=== PATIENT | female | born 1965 | race Caucasian/White ===

== ENCOUNTER 2022-11-01 13:26 | Observation (INO) | payer BC ==
[2022-11-01] MEDS ORDERED: ASPIRIN 81 MG PO STA (13:37)
[2022-11-01] MEDS ORDERED: NITROGLYCERIN OINT 1 INCH/GM PACKET TOPICAL STA (13:37)
--- NOTE | 2022-11-01 13:40 | ED ---
General Adult HPI - General Chief complaint: Chest Pain Stated complaint: chest pain Time Seen by Provider: 11/01/22 13:29 Source: patient, EMS, RN notes reviewed, old records reviewed (Chart review from [place] [facility]) Mode of arrival: EMS Limitations: no limitations - History of Present Illness Initial comments: Patient is a pleasant 57-year-old female presenting as a transfer from the next. Patient has been having some chest discomfort over the past 2-3 days. Discomfort is currently 5 or 6/10. Patient does feel some pressure there. No associated dyspnea. Patient did have nausea and did vomit one time. Patient has had some associated sweating with her discomfort. Patient had indeterminate troponin with reported no EKG changes and was advised to come to the hospital. No history of similar symptoms previously. Patient does have lupus history - Related Data Allergies Allergy/AdvReac Type Severity Reaction Status Date / Time No Known Allergies Allergy Verified 11/01/22 13:33 Review of Systems ROS Statement: Those systems with pertinent positive or pertinent negative responses have been documented in the HPI. ROS Other: All systems not noted in ROS Statement are negative. Constitutional: Denies: fever Eyes: Denies: eye pain ENT: Denies: ear pain Respiratory: Denies: dyspnea Cardiovascular: Reports: as per HPI, chest pain Gastrointestinal: Reports: as per HPI. Denies: abdominal pain Past Medical History Additional Past Medical History / Comment(s): Lupus History of Any Multi-Drug Resistant Organisms: None Reported Past Surgical History: No Surgical Hx Reported Additional Past Surgical History / Comment(s): kidney biopsy Past Psychological History: No Psychological Hx Reported Smoking Status: Never smoker Past Alcohol Use History: None Reported Past Drug Use History: None Reported General Exam Limitations: no limitations General appearance: alert, in no apparent distress Head exam: Present: normocephalic Eye exam: Present: normal appearance Neck exam: Present: normal inspection Respiratory exam: Present: normal lung sounds bilaterally. Absent: chest wall tenderness Cardiovascular Exam: Present: regular rate, normal rhythm Expanded Peripheral pulses: 2+: Radial (R), Radial (L), Dorsalis Pedis (R), Dorsalis Pedis (L) GI/Abdominal exam: Present: soft. Absent: tenderness Extremities exam: Present: normal inspection. Absent: pedal edema, calf tenderness Neurological exam: Present: alert Psychiatric exam: Present: normal affect, normal mood Skin exam: Present: normal color Course Vital Signs 11/01/22 13:33 Temperature 98.9 F Pulse Rate 82 Respiratory 16 Rate Blood Pressure 112/80 O2 Sat by Pulse 100 Oximetry EKG Findings - EKG Results: EKG: interpreted by MATTHIAS (Septal Q waves. Nonspecific ST-T.), sinus rhythm, normal axis Medical Decision Making - Medical Decision Making Was pt. sent in by a medical professional or institution (, [facility]IS, APPARATUS ENGINEERING TECHNOLOGIST, urgent care, hospital, or retirement...) When possible be specific @ -Patient was sent from the next urgent care Did you speak to anyone other than the patient for history (EMS, parent, family, police, friend...)? What history was obtained from this source @ -No Did you review nursing and triage notes (agree or disagree)? Why? @ -I reviewed and agree with nursing and triage notes Were old charts reviewed (outside hosp., previous admission, EMS record, old EKG, old radiological studies, urgent care reports/EKG's, retirement records)? Report findings @ -I did review notes from [place] [facility] including blood work and d-dimer and troponin Differential Diagnosis (chest pain, altered mental status, abdominal pain women, abdominal pain men, vaginal bleeding, weakness, fever, dyspnea, syncope, headache, dizziness, GI bleed, back pain, seizure, CVA, palpatations, mental health, musculoskeletal)? @ -Differential Chest Pain: Stable Angina, Unstable Angina, STEMI, NSTEMI Aortic Dissection, Pneumothorax, Musculoskeletal, Esophageal Spasm GERD, Cholecystitis, Pancreatitis, Zoster, this is not meant to be an all-inclusive list. EKG interpreted by me (3pts min.). @ -As above X-rays interpreted by me (1pt min.). @ -Chest x-ray shows atelectasis versus infiltrate. CT interpreted by me (1pt min.). @ -None done U/S interpreted by me (1pt. min.). @ -None done What testing was considered but not performed or refused? (CT, X-rays, U/S, labs)? Why? @ -None What meds were considered but not given or refused? Why? @ -None Did you discuss the management of the patient with other professionals (professionals i.e. , HARIS, APPARATUS ENGINEERING TECHNOLOGIST, lab, RT, psych nurse, social services assistant, radar mechanic, teacher, chief commercial officer, family preservation caseworker)? Give summary @ -Case was discussed with Dr. Delaney, who will admit for Dr. Tomas Was smoking cessation discussed for >3mins.? @ -No Was critical care preformed (if so, how long)? @ -31 minutes critical care time Were there social determinants of health that impacted care today? How? (Homelessness, low income, unemployed, alcoholism, drug addiction, transportation, low edu. Level, literacy, decrease access to med. care, snf, rehab)? @ -No Was there de-escalation of care discussed even if they declined (Discuss DNR or withdrawal of care, Hospice)? DNR status @ -No What co-morbidities impacted this encounter? (DM, HTN, Smoking, COPD, CAD, Cancer, CVA, ARF, Chemo, Hep., AIDS, mental health diagnosis, sleep apnea, morbid obesity)? @ -None Was patient admitted / discharged? Hospital course, mention meds given and route, prescriptions, significant lab abnormalities, going to OR and other pertinent info. @ -Patient was evaluated and updated on results and plan. Patient will be admitted. Admission orders written. Heparin was previously started and this will be continued. Patient will have cardiology consult. Undiagnosed new problem with uncertain prognosis? @ -No Drug Therapy requiring intensive monitoring for toxicity (Heparin, Nitro, Insuli n, Cardizem)? @ -Patient is on a heparin drip that will be continued. Were any procedures done? @ -No Diagnosis/symptom? @ -unStable angina Acute, or Chronic, or Acute on Chronic? @ -Acute Uncomplicated (without systemic symptoms) or Complicated (systemic symptoms)? @ -default Side effects of treatment? @ -No Exacerbation, Progression, or Severe Exacerbation? @ -No Poses a threat to life or bodily function? How? (Chest pain, [place], NM, pneumonia, PE, COPD, DKA, ARF, appy, cholecystitis, CVA, Diverticulitis, Homicidal, Suicidal, threat to staff... and all critical care pts) @ -Potential threat to cardiac function Case was also discussed with cardiology, Dr. Rubio who will evaluate patient at 1551. Repeat, interpreted by myself, EKG at 1549 shows sinus rhythm rate 71. FL 142. QRS 75. QT 410. QTc 432. Normal axis. Q wave in V1 and V2. Biphasic T waves laterally. - Lab Data Result diagrams: 11/01/22 14:31 11/01/22 14:31 Critical Care Time Critical Care Time: Yes Total Critical Care Time: 31 Disposition Clinical Impression: Unstable angina pectoris Disposition: ADMITTED IP TO THIS HOSP Is patient prescribed a controlled substance at d/c from ED?: No Time of Disposition: 14:31
[2022-11-01] MEDS ORDERED: HEPARIN SODIUM 1,000 UN/ML (10ML VL) IV ONE ×2 (13:56→17:15)
[2022-11-01] MEDS ORDERED: NITROGLYCERIN SL TABS 0.4 MG TAB SUBLINGUAL PRN ×2 (13:56→16:08)
[2022-11-01] MEDS: HEPARIN SOD,PORK IN 0.45% NACL 25,000 UNIT in 0.45% NACL 1 250ML.BAG IV SCH (14:37)
[2022-11-01 14:40] LABS: Basophils % (A) 0 %; Eosinophils # (A) 0.1 k/uL (0-0.7); Eosinophils % (A) 1 %; HCT 30.6 % (34.0-46.0); HGB 10.3 gm/dL (11.4-16.0); Lymphocytes # (A) 0.8 k/uL (1.0-4.8); Lymphocytes % (A) 10 %; MCH 30.6 pg (25.0-35.0); MCHC 33.7 g/dL (31.0-37.0); MCV 90.8 fL (80.0-100.0); Mean Platelet Volume 7.6; Monocytes # (A) 0.3 k/uL (0-1.0); Monocytes % (A) 4 %; Neutrophils # (A) 6.3 k/uL (1.3-7.7); Neutrophils % (A) 84 %; Platelet Count 235 k/uL (150-450); RBC 3.37 m/uL (3.80-5.40); RDW 14.6 % (11.5-15.5); WBC 7.5 k/uL (3.8-10.6)
[2022-11-01] MEDS ORDERED: ONDANSETRON 4 MG/2 ML VIAL IVP STA (14:46)
[2022-11-01 14:52] LABS: Partial Thromboplastin Time 56.5 sec (22.0-30.0); Prothrombin Time 10.3 sec (9.0-12.0)
[2022-11-01 15:09] LABS: ALT 14 U/L (4-34); AST 27 U/L (14-36); African American GFR (CKD) >90 (>60 ml/min/1.73 sqM); Albumin 3.8 g/dL (3.5-5.0); Alkaline Phosphatase 60 U/L (38-126); Anion Gap 9 mmol/L; Blood Urea Nitrogen 14 mg/dL (7-17); Calcium 9.2 mg/dL (8.4-10.2); Carbon Dioxide 20 mmol/L (22-30); Chloride 107 mmol/L (98-107); Glucose 99 mg/dL (74-99); Magnesium 1.9 mg/dL (1.6-2.3); Non-African American GFR(CKD) 80 (>60 ml/min/1.73 sqM); Potassium 4.1 mmol/L (3.5-5.1); Sodium 136 mmol/L (137-145); Total Bilirubin 0.5 mg/dL (0.2-1.3); Total Protein 6.5 g/dL (6.3-8.2)
--- NOTE | 2022-11-01 15:46 | XR ---
EXAMINATION TYPE: XR chest 2V DATE OF EXAM: 11/01/2022 COMPARISON: None HISTORY: 57-year-old female with chest pain TECHNIQUE: AP and lateral views FINDINGS: Heart normal size. Aorta and pulmonary vasculature within normal limits. Some patchy posterior basila r opacity. Mild interstitial prominence is also present. No pleural effusion. IMPRESSION: 1. Interstitial prominence could reflect bronchitis or asthma. 2. In addition, there is patchy posterior basilar atelectasis versus early infiltrate.
[2022-11-01] MEDS ORDERED: ATORVASTATIN 80 MG TAB PO STA (16:08)
[2022-11-01] MEDS ORDERED: ALPRAZolam 0.25 MG TAB PO PRN (16:08)
[2022-11-01] MEDS ORDERED: ASPIRIN 325 MG TAB PO STA (16:08)
[2022-11-01] MEDS ORDERED: ALPRAZolam 0.5 MG TAB PO PRN (16:08)
--- NOTE | 2022-11-01 16:24 | P.CRDCN ---
History of Present Illness History of present illness: HISTORY OF PRESENTING ILLNESS This is a pleasant 57-year-old with past medical history significant for lupus with some renal involvement, borderline HTN. 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 She has been having off-and-on chest pain over the last 2 days. She admits this started when she was startled and then started to develop some substernal chest pain which was somewhat atypical occasionally worse with inspiration. She thought this may been related to something mechanical that she did. 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 Therefore she was urged to sit down and EMS was called. She denies any prior similar episodes. She does not smoke, no alcohol, no illicit drugs. Family history father with OR in his 70s. She has been diagnosed with lupus as well as with renal involvement apparently by biopsy and therefore has been on methotrexate. DIAGNOSTICS EKG reveals normal sinus rhythm, minimal ST depressions in inferior and lateral leads. Poor R-wave progression. Minimal 0.[address] elevation in V6. REVIEW OF SYSTEMS At the time of my exam: CONSTITUTIONAL: Denies fever or chills. CARDIOVASCULAR: +chest pain, +shortness of breath, no orthopnea, PND or palpitations. RESPIRATORY: Denies cough. GASTROINTESTINAL: Denies abdominal pain, diarrhea, constipation, nausea or vomiting. MUSCULOSKELETAL: Denies myalgias. NEUROLOGIC: Denies numbness, tingling or weakness. ENDOCRINE: Denies fatigue, weight change, polydipsia or polyurina. GENITOURINARY: Denies burning, hematuria or urgency with micturation. HEMATOLOGIC: Denies history of anemia or bleeding. PHYSICAL EXAMINATION Vital signs reviewed. CONSTITUTIONAL: No apparent distress. HEENT: Head is normocephalic. Pupils are equal, round. Sclerae anicteric. Mucous membranes of the mouth are moist. No JVD. No carotid bruit. CHEST EXAMINATION: Lungs are clear to auscultation. No chest wall tenderness is noted on palpation or with deep breathing. HEART EXAMINATION: Regular rate and rhythm. S1, S2 heard. No murmurs, gallops or rub. ABDOMEN: Soft, nontender. Positive bowel sounds. EXTREMITIES: 2+ peripheral pulses, no lower extremity edema and no calf tenderness. NEUROLOGIC EXAMINATION: Patient is awake, alert and oriented x3. ASSESSMENT 1. Non-STEMI 2. Chest pain 3. History of lupus 4. Hypertension, somewhat borderline PLAN Majority of symptoms appear related to non-STEMI, concern of type I etiology. Also possibility of Takotsubo's with inciting event of patient being startled. Rule out PE and check D dimer. Continue aspirin, heparin drip. Check 2D echo. Patient still having ongoing 5/10 chest pain, somewhat improved from prior. Refusing to take nitro given gets headache from this. Therefore recommend heart catheterization today. Past Medical History Additional Past Medical History / Comment(s): Lupus History of Any Multi-Drug Resistant Organisms: None Reported Past Surgical History: No Surgical Hx Reported Additional Past Surgical History / Comment(s): kidney biopsy Past Psychological History: No Psychological Hx Reported Smoking Status: Never smoker Past Alcohol Use History: None Reported Past Drug Use History: None Reported Medications and Allergies Allergies Allergy/AdvReac Type Severity Reaction Status Date / Time No Known Allergies Allergy Verified 11/01/22 13:33 Physical Exam Vitals: Vital Signs Temp Pulse Resp BP Pulse Ox 11/01/22 13:33 98.9 F 82 16 112/80 100 Intake and Output 11/01/22 11/01/22 11/01/22 06:59 14:59 22:59 Other: Weight 79.379 kg Results 11/01/22 14:31 11/01/22 14:31 Cardiac Enzymes 11/01/22 11/01/22 11/01/22 Range/Units 14:31 14:31 14:51 AST 27 (14-36) U/L Troponin I 0.507 H* 0.574 H* (0.000-0.034) ng/mL Coagulation 11/01/22 Range/Units 14:31 PT 10.3 (9.0-12.0) sec APTT 56.5 H (22.0-30.0) sec CBC 11/01/22 Range/Units 14:31 WBC 7.5 (3.8-10.6) k/uL RBC 3.37 L (3.80-5.40) m/uL Hgb 10.3 L (11.4-16.0) gm/dL Hct 30.6 L (34.0-46.0) % Plt Count 235 (150-450) k/uL Comprehensive Metabolic Panel 11/01/22 Range/Units 14:31 Sodium 136 L (137-145) mmol/L Potassium 4.1 (3.5-5.1) mmol/L Chloride 107 (98-107) mmol/L Carbon Dioxide 20 L (22-30) mmol/L BUN 14 (7-17) mg/dL Creatinine 0.83 (0.52-1.04) mg/dL Glucose 99 (74-99) mg/dL Calcium 9.2 (8.4-10.2) mg/dL AST 27 (14-36) U/L ALT 14 (4-34) U/L Alkaline Phosphatase 60 (38-126) U/L Total Protein 6.5 (6.3-8.2) g/dL Albumin 3.8 (3.5-5.0) g/dL Current Medications Generic Name Dose Route Start Last Admin Trade Name Freq PRN Reason Stop Dose Admin Alprazolam 0.25 mg 11/01/22 16:08 Alprazolam 0.25 Mg Tab PO Q6HR PRN Mild Anxiety Alprazolam 0.5 mg 11/01/22 16:08 Alprazolam 0.5 Mg Tab PO Q6HR PRN Moderate Anxiety Aspirin 325 mg 11/02/22 09:00 Aspirin 325 Mg Tab PO DAILY [facility] Heparin Sodium/Sodium Chloride 250 mls @ 9.525 mls/hr 11/01/22 14:00 11/01/22 14:37 25,000 unit/ Sodium Chloride IV 12 units/kg/hr .Q24H LIBBY 9.525 mls/hr Administration Protocol 12 UNITS/KG/HR Heparin Sodium (Porcine) 10, 1,001 mls @ 999 mls/hr 11/02/22 07:00 000 unit/ Sodium Chloride IRRIGATION 11/02/22 23:00 ONCE PRN INTRA-OP Heparin Sodium (Porcine) 2,500 250.5 mls @ 250 mls/hr 11/02/22 07:00 unit/ Sodium Chloride IRRIGATION 11/02/22 23:00 ONCE PRN INTRA-OP Nitroglycerin 1 inch 11/01/22 18:00 Nitroglycerin Oint 1 Inch/Gm Packet TOPICAL Q6HR LIBBY Nitroglycerin 0.4 mg 11/01/22 16:08 Nitroglycerin Sl Tabs 0.4 Mg Tab SUBLINGUAL Q5M PRN Chest Pain Intake and Output 11/01/22 11/01/22 11/01/22 06:59 14:59 22:59 Other: Weight 79.379 kg Patient Weight 11/02/22 06:59 Weight 79.379 kg 11/01/22 14:31 11/01/22 14:31
[2022-11-01] MEDS ORDERED: SODIUM CHLORIDE 0.9% 250 ML IV ONE (17:07)
[2022-11-01] MEDS ORDERED: SODIUM CHLORIDE 0.9% 500 ML 500 ML IV ONE (17:07)
[2022-11-01] MEDS ORDERED: HYDROCORTISONE SUCCINATE 100 MG/2 ML VIAL IV STA (17:07)
[2022-11-01] MEDS ORDERED: fentaNYL (PF) 50 MCG/ML 2 ML AMP ONE (17:08)
[2022-11-01] MEDS ORDERED: MIDAZOLAM 2 MG/2 ML VIAL IVP ONE (17:10)
[2022-11-01] MEDS ORDERED: fentaNYL (PF) 50 MCG/ML 2 ML AMP IVP ONE (17:10)
[2022-11-01] MEDS ORDERED: LIDOCAINE 1% INJ 10MG/ML (5 ML VIAL-PF) SQ ONE (17:11)
[2022-11-01] MEDS ORDERED: VERAPAMIL SYRINGE (5 MG/10 ML) INTRAARTER ONE (17:13)
[2022-11-01] MEDS ORDERED: IOPAMIDOL-370 200ML BTL INJ ONE (17:27)
--- NOTE | 2022-11-01 17:33 | P.CARDCATH ---
Description of Procedure: PROCEDURES PERFORMED: Left heart catheterization, bilateral coronary angiography, left ventriculogram, ultrasound guided arterial access INDICATION: Non-STEMI CONSENT:I have discussed the risks, benefits and alternative therapies for the above-mentioned procedure and for both sedation/analgesia as well as necessary blood product administration, if indicated, as they pertain to this patient. The patient has indicated understanding and acceptance of the risks and procedures discussed. PROCEDURE: After the risks, benefits and alternatives of the above mentioned procedure explained in detail with the patient, informed consent was obtained. Patient was taken to the catheterization lab and prepped and draped in usual fashion. Ultrasound guidance was used to assess for arterial access. 1% lidocaine was used to anesthetize the right radial artery. A 6-Guatemalan sheath was placed in the right radial artery using modified Seldinger technique and ultrasound guidance. Left coronary angiography was performed with a 5-[place]atem[place] JL 3.5 catheter and right coronary angiography was performed with a 5-[place] JR5 catheter in various views. A 5-[place]atem[place] FR5 catheter was inserted into the left ventricle and pressure measurements were obtained. A left ventriculogram was performed with a 6-[place] angled pigtail catheter in the ADAN projection with power injection. The right radial sheath was removed and a TR band was placed with hemostasis achieved. The patient tolerated the procedure well. Patient was transported back to the post catheterization holding area in stable condition. Conscious Sedation: Patient was monitored under the direct supervision of myself for conscious sedation using Versed and fentanyl for a total duration of 18 minutes HEMODYNAMICS: Aorta: 108/76 LV: 109/10, LVEDP 22 SELECTIVE CORONARY ARTERIOGRAPHY: LEFT MAIN: The left main is a large caliber vessel which bifurcates into the LAD and circumflex. There is no significant stenosis. LEFT ANTERIOR DESCENDING CORONARY ARTERY: LAD is a large caliber vessel which wraps around to the apex. There is no significant stenosis. LEFT CIRCUMFLEX CORONARY ARTERY: Left circumflex is a moderate caliber vessel without significant stenosis. RIGHT CORONARY ARTERY: The right coronary artery is a large caliber vessel which gives off a PDA and PLV branch and is the dominant vessel. There is no significant stenosis. LEFT VENTRICULOGRAM: Left ventricular ejection fraction 30-35% with mainly apical hypokinesis with sparing of the base however more mid cavitary akinesis then true apical hypokinesis consistent with mid cavitary variant Takotsubo's cardiomyopathy FINAL IMPRESSION: 1. Normal coronary arteries as described above. 2. Mildly elevated left sided filling pressures 3. Left ventricular ejection fraction 30-35% with mid cavitary variant Takotsubo's cardiomyopathy PLAN: 1. Aggressive risk factor modification per most recent ACC/AHA guidelines. 2. Follow-up in the office in 1-2 weeks.
[2022-11-01] MEDS ORDERED: NITROGLYCERIN OINT 1 INCH/GM PACKET TOPICAL SCH (18:00)
[2022-11-01] MEDS ORDERED: CALCIUM CARBONATE 500 MG CHEWABLE PO PRN (18:10)
[2022-11-01] MEDS ORDERED: ONDANSETRON 4 MG/2 ML VIAL IVP PRN (18:10)
[2022-11-01] MEDS ORDERED: NALOXONE 0.4 MG/ML 1 ML VIAL IVP PRN (18:10)
--- NOTE | 2022-11-01 18:19 | P.HPIM ---
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 She was found have an elevated troponin and was subsequently transferred to our ER. Repeat EKG showed normal sinus rhythm at a rate of 71, normal axis, normal intervals, and nonspecific ST-T wave changes Elevated troponin was confirmed at 0.507. Chest x-ray showed mild interstitial prominence. The emergency physician urgently talked with cardiology came down to see the patient. Arrangements are made for admission. She went emergently to left heart cath. She had normal coronary arteries but did show a left ventricular ejection fraction of 30-35% consistent with Takotsubo's cardiomyopathy. Patient seen and examined at bedside. She reports that she has been having chest pain for the last 2 days. It started after getting startled. She has had some intermittent shortness of breath. Today the chest pain got worse and she started feeling nauseated and became pale. She reports that she follows at [facility] for her lupus. She was recently diagnosed with renal involvement. She is on., On biologic, and chronic prednisone for quite some time. About a month ago she decreased her prednisone from 10 mg daily she is 9 mg daily. She missed her dose this morning as well as her AM CellCept dose. She follows with Dr. Chanel of nephrology for her lupus nephritis. She denies any brain, ocular, or lung involvement of her lupus. Vital signs reviewed General: nontoxic, no distress, appears at stated age Derm: warm, dry Eyes: EOMI, no lid lag, anicteric sclera, pupils equal round reactive to light ENT: Nose and ears atraumatic, no thrush, no pharyngeal erythema Cardiovascular: S1S2 reg, no murmur, positive posterior tibial pulse bilateral, 1+ edema Lungs: clear to auscultation bilateral, no rhonchi, no rales, no wheeze, no accessory muscle use Abdominal: soft, nontender to palpation, no guarding, no appreciable organomegaly, normal bowel sounds Ext: no gross muscle atrophy, moving all 4 extremities independently, no contractures Neuro: CN II-XII grossly intact, no focal neuro deficits Psych: Alert, oriented, appropriate affect Assessment/Plan: Takotsubo's cardiomyopathy - heart cath with normal coronaries - Start Metoprolol 25 mg daily, resume home cozaar - NS @ 75 cc/hr, moniutor closely for fluid overload but recent issue with renal fuction and lupus - reapeat CR in AM - check lipid profile - echo - tele Lupus with chronic steroid use and renal involvement - resume home cellcept 1500 mg twice daily, prednisone 9 mg daily, missed her AM steroids and has been on for a >3 months will give solu-cortef 25 mg IVP X 1 now. Imaging: As per HPI Data Review: As per HPI The patient is admitted with an anticipated greater than 2 midnight stay for evaluation of chest pain DVT prophylaxis: SCDs Discussed with: patient, ed physician, nursing Anticipated discharge date: Pending Clinical Course Anticipated discharge place: Pending Clinical Course This dictation was prepared using Ve[employer] voice recognition software. Though every attempt is made to correct errors during dictation some may still exist. Past Medical History Additional Past Medical History / Comment(s): Lupus History of Any Multi-Drug Resistant Organisms: None Reported Additional Past Surgical History / Comment(s): kidney biopsy Past Psychological History: No Psychological Hx Reported Smoking Status: Never smoker Past Alcohol Use History: None Reported Past Drug Use History: None Reported Medications and Allergies Home Medications Medication Instructions Recorded Confirmed Type Belimumab [Benlysta] 200 mg SQ WE@179911/01/22 11/01/22 History Calcium Citrate/Vitamin D3 1 tab PO BID@0900,179911/01/22 11/01/22 History [Citracal + D Maximum Caplet] Hydroxychloroquine Sulfate 200 mg PO BID@0900,1800 11/01/22 11/01/22 History [Plaquenil] Losartan [Cozaar] 50 mg PO DAILY@179911/01/22 11/01/22 History mycophenolate mofetiL [Cellcept] 1,500 mg PO BID@0900,1800 11/01/22 11/01/22 History predniSONE 4 mg PO DAILY 11/01/22 11/01/22 History predniSONE 5 mg PO DAILY 11/01/22 11/01/22 History Allergies Allergy/AdvReac Type Severity Reaction Status Date / Time No Known Allergies Allergy Verified 11/01/22 16:20 Physical Exam Osteopathic Statement: *. No significant issues noted on an osteopathic structural exam other than those noted in the History and Physical/Consult. Vitals: Vital Signs Temp Pulse Resp BP Pulse Ox 11/01/22 16:37 74 18 109/79 99 11/01/22 15:45 78 16 120/88 100 11/01/22 13:33 98.9 F 82 16 112/80 100 Intake and Output 11/01/22 11/01/22 11/01/22 06:59 14:59 22:59 Intake Total 440 Balance 440 Intake: IV 200 Oral 240 Other: # Voids 1 Weight 79.379 kg Results CBC & Chem 7: 11/01/22 14:31 11/01/22 14:31 Labs: Abnormal Lab Results - Last 24 Hours (Table) 11/01/22 11/01/22 11/01/22 Range/Units 14:31 14:31 14:31 RBC 3.37 L (3.80-5.40) m/uL Hgb 10.3 L (11.4-16.0) gm/dL Hct 30.6 L (34.0-46.0) % Lymphocytes # 0.8 L (1.0-4.8) k/uL APTT 56.5 H (22.0-30.0) sec Sodium 136 L (137-145) mmol/L Carbon Dioxide 20 L (22-30) mmol/L Troponin I (0.000-0.034) ng/mL 11/01/22 11/01/22 Range/Units 14:31 14:51 RBC (3.80-5.40) m/uL Hgb (11.4-16.0) gm/dL Hct (34.0-46.0) % Lymphocytes # (1.0-4.8) k/uL APTT (22.0-30.0) sec Sodium (137-145) mmol/L Carbon Dioxide (22-30) mmol/L Troponin I 0.507 H* 0.574 H* (0.000-0.034) ng/mL
[2022-11-01] MEDS: SODIUM CHLORIDE 0.9% 1,000 ML IV SCH (18:23)
[2022-11-01] MEDS: METOPROLOL SUCCINATE (ER) 25 MG TAB.ER.24H PO SCH (18:29)
[2022-11-01] MEDS: ACETAMINOPHEN TAB 325 MG TAB PO PRN ×2 (18:29→23:40)
[2022-11-02 03:11] LABS: Mean Platelet Volume 7.8; Platelet Count 217 k/uL (150-450)
[2022-11-02 03:35] LABS: ALT 13 U/L (4-34); AST 23 U/L (14-36); African American GFR (CKD) >90 (>60 ml/min/1.73 sqM); Albumin 3.3 g/dL (3.5-5.0); Alkaline Phosphatase 48 U/L (38-126); Anion Gap 6 mmol/L; Blood Urea Nitrogen 11 mg/dL (7-17); Calcium 8.8 mg/dL (8.4-10.2); Carbon Dioxide 22 mmol/L (22-30); Chloride 105 mmol/L (98-107); Glucose 99 mg/dL (74-99); Non-African American GFR(CKD) 89 (>60 ml/min/1.73 sqM); Potassium 4.5 mmol/L (3.5-5.1); Sodium 133 mmol/L (137-145); Total Bilirubin 0.6 mg/dL (0.2-1.3); Total Protein 5.9 g/dL (6.3-8.2)
[2022-11-02] MEDS: ACETAMINOPHEN TAB 325 MG TAB PO PRN (06:04)
[2022-11-02] MEDS: SODIUM CHLORIDE 0.9% 1,000 ML IV SCH (06:05)
[2022-11-02] MEDS ORDERED: HEPARIN SODIUM,PORCINE (1 ML) 2,500 UNIT in SODIUM CHLORIDE 0.9% 250 ML IRRIGATION PRN (07:00)
[2022-11-02] MEDS ORDERED: HEPARIN SODIUM,PORCINE 10,000 UNIT in SODIUM CHLORIDE 0.9% 1,000 ML IRRIGATION PRN (07:00)
[2022-11-02] MEDS ORDERED: ASPIRIN 325 MG TAB PO SCH (09:00)
[2022-11-02] MEDS ORDERED: HYDROXYCHLOROQUINE SULFATE 200 MG TAB PO SCH (09:00)
[2022-11-02] MEDS ORDERED: CALCIUM CARB-VIT D 500 MG-5 MCG TAB PO SCH (09:00)
[2022-11-02] MEDS ORDERED: predniSONE 5 MG TAB PO SCH (09:00)
[2022-11-02] MEDS ORDERED: predniSONE 1 MG TAB PO SCH (09:00)
[2022-11-02 09:06] LABS: Chol/HDL Ratio 2.41 Ratio; LDL Cholesterol,Calculated 69.8 mg/dL (0.0-131.0)
[2022-11-02] MEDS: HEPARIN SOD,PORK IN 0.45% NACL 25,000 UNIT in 0.45% NACL 1 250ML.BAG IV SCH (09:16)
[2022-11-02] MEDS: METOPROLOL SUCCINATE (ER) 25 MG TAB.ER.24H PO SCH (09:32)
[2022-11-02 11:19] VITALS: BP 92/62; PULSE 74; RESP 20; TEMP 99.4
--- NOTE | 2022-11-02 12:25 | P.PN ---
Subjective HISTORY OF PRESENT ILLNESS: This is a pleasant 57-year-old with past medical history significant for lupus with some renal involvement, borderline HTN. 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 She has been having off-and-on chest pain over the last 2 days. She admits this started when she was startled and then started to develop some substernal chest pain which was somewhat atypical occasionally worse with inspiration. She thought this may been related to something mechanical that she did. 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 Therefore she was urged to sit down and EMS was called. She denies any prior similar episodes. She does not smoke, no alcohol, no illicit drugs. Family history father with PA in his 70s. She has been diagnosed with lupus as well as with renal involvement apparently by biopsy and therefore has been on methotrexate. DIAGNOSTICS EKG reveals normal sinus rhythm, minimal ST depressions in inferior and lateral leads. Poor R-wave progression. Minimal 0.[address] elevation in V6. 11/02/2022 Patient underwent cardiac catheterization yesterday revealing normal coronary arteries, mildly elevated left-sided filling pressures, and left ventricular ejection fraction 30-35% with mid cavitary variant Takotsubo's cardiomyopathy. Patient examined this morning at the bedside this morning. Patient denies having any chest pain or pressure. She denies any shortness of breath. Vital signs are stable. PHYSICAL EXAM: VITAL SIGNS: Reviewed. GENERAL: Well-developed in no acute distress. NECK: Supple. No JVD or thyromegaly LUNGS: Respirations even and unlabored. Lungs essentially clear to auscultation bilaterally. HEART: Regular rate and rhythm. S1 and S2 heard. EXTREMITIES: Normal range of motion. No clubbing or cyanosis. Peripheral pulses intact. No lower extremity edema ASSESSMENT: 1. Non-STEMI, status post cardiac catheterization revealing normal coronary arteries 2. Chest pain 3. History of lupus 4. Hypertension, somewhat borderline 5. Nonischemic cardiomyopathy, 3035% PLAN: Continue current cardiac medications Patient may be discharged home today from a cardiac standpoint Follow up in the office with Dr. Rubio Nurse practitioner note has been reviewed by physician. Signing provider agrees with the documented findings, assessment, and plan of care. Objective - Vital Signs Vital signs: Vital Signs Temp 99.4 F 11/02/22 11:10 Pulse 74 11/02/22 11:10 Resp 20 11/02/22 11:10 BP 92/62 11/02/22 11:10 Pulse Ox 98 11/02/22 11:10 FiO2 Intake & Output 11/01/22 11/02/22 11/02/22 18:59 06:59 18:59 Intake Total 440 600 240 Balance 440 600 240 Weight 79.379 kg Intake: IV 200 Intake, IV Titration 600 Amount Sodium Chloride 0.9% 1, 600 000 ml @ 75 mls/hr IV . [id number] [facility] Rx#:[id number] Oral 240 240 Other: Voiding Method Toilet Toilet # Voids 1 1 - Labs CBC & Chem 7: 11/02/22 02:33 11/02/22 02:33 Labs: Abnormal Lab Results - Last 24 Hours (Table) 11/01/22 11/01/22 11/01/22 Range/Units 14:31 14:31 14:31 RBC 3.37 L (3.80-5.40) m/uL Hgb 10.3 L (11.4-16.0) gm/dL Hct 30.6 L (34.0-46.0) % Lymphocytes # 0.8 L (1.0-4.8) k/uL APTT 56.5 H (22.0-30.0) sec Sodium 136 L (137-145) mmol/L Carbon Dioxide 20 L (22-30) mmol/L Troponin I (0.000-0.034) ng/mL Total Protein (6.3-8.2) g/dL Albumin (3.5-5.0) g/dL 11/01/22 11/01/22 11/01/22 Range/Units 14:31 14:51 18:53 RBC (3.80-5.40) m/uL Hgb (11.4-16.0) gm/dL Hct (34.0-46.0) % Lymphocytes # (1.0-4.8) k/uL APTT (22.0-30.0) sec Sodium (137-145) mmol/L Carbon Dioxide (22-30) mmol/L Troponin I 0.507 H* 0.574 H* 0.821 H* (0.000-0.034) ng/mL Total Protein (6.3-8.2) g/dL Albumin (3.5-5.0) g/dL 11/01/22 11/02/22 Range/Units 18:53 02:33 RBC (3.80-5.40) m/uL Hgb (11.4-16.0) gm/dL Hct (34.0-46.0) % Lymphocytes # (1.0-4.8) k/uL APTT 52.0 H (22.0-30.0) sec Sodium 133 L (137-145) mmol/L Carbon Dioxide (22-30) mmol/L Troponin I (0.000-0.034) ng/mL Total Protein 5.9 L (6.3-8.2) g/dL Albumin 3.3 L (3.5-5.0) g/dL
--- NOTE | 2022-11-02 13:18 | P.DS ---
Providers Date of admission: 11/01/22 13:56 Expected date of discharge: 11/02/22 Attending physician: Sophia Delaney, Consults: 11/01/22 13:56 Consult Physician Urgent Consulting Provider: Suraj Rubio Consult Reason/Comments: ua Do you want consulting provider notified?: Yes Primary care physician: Uri Marie Thom [facility] Course: Discharge Diagnosis: Takotsubo's cardiomyopathy Lupus with chronic steroid use and renal involvement Hospital Course: Patient is a -year-old female with lupus , located by lupus nephritis on biologic, DMARD, and chronic steroids who initially presented to urgent care with complains of chest pain. She was found have an elevated troponin and was subsequently transferred to our ER. Repeat EKG showed normal sinus rhythm at a rate of 71, normal axis, normal intervals, and nonspecific ST-T wave changes Elevated troponin was confirmed at 0.507. Chest x-ray showed mild interstitial prominence. The emergency physician urgently talked with cardiology came down to see the patient. Arrangements are made for admission. She went emergently to left heart cath. She had normal coronary arteries but did show a left ventricular ejection fraction of 30-35% consistent with Takotsubo's cardiomyopathy. Follow-up: Dr. Rubio in 1 week, Dr. Tomas in 2-3 days, new med: Metoprolol xL 25 mg daily Patient seen and examined at bedside. No additional chest pain, shortness of breath, increased swelling. Vital signs reviewed and stable. General: nontoxic, no distress, appears at stated age Cardiovascular: S1S2 reg, no murmur, positive posterior tibial pulse bilateral, Lungs: CTA bilateral, no rhonchi, no rales , no accessory muscle use Abdominal: soft, nontender to palpation, no guarding, no appreciable organomegaly Ext: no gross muscle atrophy, trace edema b/l lower extremities, no contractures Neuro: CN II-XI grossly intact, no focal neuro deficits Psych: Alert, oriented, appropriate affect A total of 35 minutes of time were spent preparing this complex discharge summary. Patient was discharged on 11/02/22. This dictation was prepared using [employer] voice recognition software. Though every attempt is made to correct errors during dictation some may still exist. Plan - Discharge Summary Discharge Rx Participant: No New Discharge Prescriptions: New Metoprolol Succinate (ER) [Toprol XL] 25 mg PO DAILY #30 tab Continue predniSONE 4 mg PO DAILY predniSONE 5 mg PO DAILY Belimumab [Benlysta] 200 mg SQ WE@1800 Calcium Citrate/Vitamin D3 [Citracal + D Maximum Caplet] 1 tab PO BID@0900,1800 Losartan [Cozaar] 50 mg PO DAILY@1800 mycophenolate mofetiL [Cellcept] 1,500 mg PO BID@0900,1800 Hydroxychloroquine Sulfate [Plaquenil] 200 mg PO BID@0900,1800 Discharge Medication List Belimumab [Benlysta] 200 mg SQ WE@1800 11/01/22 [History] Calcium Citrate/Vitamin D3 [Citracal + D Maximum Caplet] 1 tab PO BID@0900,1800 11/01/22 [History] Hydroxychloroquine Sulfate [Plaquenil] 200 mg PO BID@0900,1800 11/01/22 [History] Losartan [Cozaar] 50 mg PO DAILY@1800 11/01/22 [History] mycophenolate mofetiL [Cellcept] 1,500 mg PO BID@0900,1800 11/01/22 [History] predniSONE 4 mg PO DAILY 11/01/22 [History] predniSONE 5 mg PO DAILY 11/01/22 [History] Metoprolol Succinate (ER) [Toprol XL] 25 mg PO DAILY #30 tab 11/02/22 [Rx] Follow up Appointment(s)/Referral(s): Suraj Rubio DO [STAFF PHYSICIAN] - 1 Week (offfice will call with an appointment. ) Uri Tomas MD [Primary Care Provider] - 1-2 days (office is closed for lunch, please call and schedule your follow up appointment. ) Patient Instructions/Handouts: Angina (DC) Activity/Diet/Wound Care/Special Instructions: Activity: as tolerated Diet: heart healthy Special Instructions: Monitor for signs of fluid retention such as weight gain, edema, and shortness of breath. Discharge Disposition: HOME SELF-CARE
[2022-11-02] MEDS ORDERED: BELIMUMAB SQ SCH (18:00)
[2022-11-02] MEDS ORDERED: AUTO INJCT SQ SCH (18:00)
[2022-11-02] MEDS ORDERED: LOSARTAN 50 MG TAB PO SCH (18:00)
[2022-11-03] MEDS ORDERED: ASPIRIN 81 MG PO SCH (09:00)
--- NOTE | 2022-11-03 11:33 | CA ---
Transthoracic Echo Report Name: Lana Mckinnon Age: 57 Gender: F : 1965 Exam Date: 11/02/2022 10:06 Exam Location: [facility] Ht (in): 68 Wt (lb): 175 Ordering Physician: Suraj Rubio DO ([email or web address]) Attending/Referring Phys: Checkerer Hand Chi López Procedure CPT: Indications: re: NSTEMI Cardiac Hx: Technical Quality: Fair Contrast 1: Total Dose (mL): Contrast 2: Total Dose (mL): MEASUREMENTS (Male / Female) Normal Values 2D ECHO LV Diastolic Diameter PLAX 5.0 cm 4.2 - 5.9 / 3.9 - 5.3 cm LV Systolic Diameter PLAX 3.9 cm IVS Diastolic Thickness 1.0 cm 0.6 - 1.0 / 0.6 - 0.9 cm LVPW Diastolic Thickness 1.0 cm 0.6 - 1.0 / 0.6 - 0.9 cm LV Relative Wall Thickness 0.4 RV Internal Dim ED PLAX 2.9 cm LVOT Diameter 2.0 cm Aortic Root Diameter 3.1 cm LA Systolic Diameter LX 2.7 cm 3.0 - 4.0 / 2.7 - 3.8 cm LV Diastolic Volume MOD BP 106.9 cm??? 67 - 155 / 56 - 104 cm??? LV Systolic Volume MOD BP 72.1 cm??? - 58 / 19 - 49 cm??? LV Ejection Fraction MOD BP 32.5 % >= 55 % LV Cardiac Index MOD BP 1415.4 cm???/min???m??? LV Diastolic Volume MOD 4C 96.7 cm??? LV Systolic Volume MOD 4C 57.2 cm??? LV Ejection Fraction MOD 4C 40.8 % LV Cardiac Index MOD 4C 1604.3 cm???/min???m??? LV Diastolic Length 4C 8.3 cm LV Systolic Length 4C 7.1 cm LV Diastolic Volume MOD 2C 116.1 cm??? LV Systolic Volume MOD 2C 86.7 cm??? LV Ejection Fraction MOD 2C 25.3 % LV Cardiac Index MOD 2C 1193.2 cm???/min???m??? LV Diastolic Length 2C 8.5 cm LV Systolic Length 2C 7.6 cm LA Volume 60.5 cm??? 18 - 58 / 22 - 52 cm??? DOPPLER AV Peak Velocity 138.3 cm/s AV Peak Gradient 7.7 mmHg AI Peak Velocity 248.3 cm/s AI Peak Gradient 24.7 mmHg AI Pressure Half Time 786.6 ms LVOT Peak Velocity 69.1 cm/s LVOT Peak Gradient 1.9 mmHg AV Area Cont Eq pk 1.6 cm??? MV Peak Velocity 87.3 cm/s MV Peak Gradient 3.0 mmHg MV Mean Velocity 38.2 cm/s MV Mean Gradient 0.8 mmHg MV Velocity Time Integral 27.1 cm MR Peak Velocity 417.2 cm/s MR Peak Gradient 69.6 mmHg Mitral E Point Velocity 82.2 cm/s Mitral A Point Velocity 79.5 cm/s Mitral E to A Ratio 1.0 MV Deceleration Time 179.0 ms MV E' Velocity 7.4 cm/s Mitral E to MV E' Ratio 11.1 TR Peak Velocity 255.9 cm/s TR Peak Gradient 26.2 mmHg Right Ventricular Systolic Press 31.2 mmHg PV Peak Velocity 82.7 cm/s PV Peak Gradient 2.7 mmHg FINDINGS Left Ventricle Normal LV size and wall thickness. Left ventricular ejection fraction is estimated at 15-20 %. Akinetic apex. Hypokinesis of all mid to distal myocardial segments. Basal segments are appropriately thickening. Right Ventricle Normal right ventricular size. RVSP= 31mmhg Right Atrium Normal right atrial size. Left Atrium Normal left atrial size. LA volume index= 31ml/m2 Mitral Valve Structurally normal mitral valve. Mild MR. Aortic Valve Mild to moderate AV calcification. Mild AI. Tricuspid Valve Structurally normal tricuspid valve. Mild TR. Pulmonic Valve Structurally normal pulmonic valve. Mild PI. Pericardium No pericardial effusion Aorta Normal size aortic root . CONCLUSIONS Severely reduced LV systolic function with EF estimated at 20% Apical akinesis Hypokinesis of all mid to distal myocardial segments Mild mitral regurgitation No prior echocardiogram to compare with Previewed by: Dr Perry Figueroa (Electronically Signed) Final Date: 03 November 2022 11:32
== END 2022-11-02 12:54 | disposition home or self-care (01) ==
LOC: EC 13:26 → 3SCARD 13:56
PROVIDERS: ADMIT Internal Medicine; ATTEND Internal Medicine
DX: I51.81 Takotsubo syndrome (principal); M32.14 Glomerular disease in systemic lupus erythematosus; I21.4 Non-ST elevation (NSTEMI) myocardial infarction; I42.8 Other cardiomyopathies; I10 Essential (primary) hypertension; Z79.631 Long term (current) use of antimetabolite agent; Z79.52 Long term (current) use of systemic steroids; Z79.624 Long term (current) use of inhibitors of nucleotide synthesis; Z79.899 Other long term (current) drug therapy; Z98.890 Other specified postprocedural states; Z82.49 Family history of ischemic heart disease and other diseases of the circulatory system
CPT/HCPCS: 96374; 99291; 36415; 93005; 93306; 93458; 76937; 85379; 80061; 80053 ×2; 83735; 84484; 85025; 85049; 85610; 85730 ×2; 71046; G0378 ×2; C1894; J2250; J1720; J2405; J2001; J3010; J7517 ×2; J1644 ×2; J7512 ×2; Q9967

== ENCOUNTER 2023-04-18 08:49 | Emergency (ER) | payer BC ==
--- NOTE | 2023-04-18 09:30 | ED ---
General Adult HPI - General Chief complaint: Syncope Stated complaint: syncope Time Seen by Provider: 04/18/23 09:00 Source: patient, RN notes reviewed, old records reviewed Mode of arrival: ambulatory Limitations: no limitations - History of Present Illness Initial comments: This is a 57-year-old female who presents to the emergency department stating she has had 3 days of diarrhea. Patient states she got up and was late for work so she ran over to the sink to wash her hair and when she bent over she became very dizzy and nearly passed out. Patient states she also had a headache but she always gets headaches and this is no different today. Patient states she took Tylenol and it is vastly improved at this point. Patient Nuys any numbness weakness. Patient states she feels much better at this point when EMS came to the house patient had a low blood pressure and when she arrived to the emergency department he continued to be low when she was a little bit dizzy. Patient is feeling better currently. Patient denies any nausea vomiting. Patient Nuys chest pain palpitations difficulty breathing or shortness of breath. Patient Nuys any recent fever chills or cough. - Related Data Home Medications Medication Instructions Recorded Confirmed Belimumab [Benlysta] 200 mg SQ WE 11/01/22 04/18/23 Calcium Citrate/Vitamin D3 1 tab PO BID 11/01/22 04/18/23 [Citracal + D Maximum Caplet] Hydroxychloroquine Sulfate 200 mg PO BID 11/01/22 04/18/23 [Plaquenil] Losartan [Cozaar] 50 mg PO HS 11/01/22 04/18/23 mycophenolate mofetiL [Cellcept] 1,500 mg PO BID 11/01/22 04/18/23 predniSONE 4 mg PO DAILY 11/01/22 04/18/23 Allergies Allergy/AdvReac Type Severity Reaction Status Date / Time No Known Allergies Allergy Verified 04/18/23 09:06 Review of Systems ROS Statement: Those systems with pertinent positive or pertinent negative responses have been documented in the HPI. ROS Other: All systems not noted in ROS Statement are negative. Past Medical History Additional Past Medical History / Comment(s): Lupus History of Any Multi-Drug Resistant Organisms: None Reported Past Surgical History: No Surgical Hx Reported Additional Past Surgical History / Comment(s): kidney biopsy Past Anesthesia/Blood Transfusion Reactions: No Reported Reaction Past Psychological History: No Psychological Hx Reported Smoking Status: Never smoker Past Alcohol Use History: None Reported Past Drug Use History: None Reported - Past Family History Father Family Medical History: Chest Pain / Angina General Exam - General Exam Comments Initial Comments: GENERAL: Patient is well-developed and well-nourished. Patient is nontoxic and well- hydrated and is in mild distress. ENT: Neck is soft and supple. No significant lymphadenopathy is noted. Oropharynx is clear. Moist mucous membranes. Neck has full range of motion without elicit ing any pain. EYES: The sclera were anicteric and conjunctiva were pink and moist. Extraocular m ovements were intact and pupils were equal round and reactive to light. Eyelids were unremarkable. PULMONARY: Unlabored respirations. Good breath sounds bilaterally. No audible rales rhonchi or wheezing was noted. CARDIOVASCULAR: There is a regular rate and rhythm without any murmurs gallops or rubs. ABDOMEN: Soft and nontender with normal bowel sounds. SKIN: Skin is clear with no lesions or rashes and otherwise unremarkable. NEUROLOGIC: Patient is alert and oriented x3. Cranial nerves II through XII are grossly intact. Motor and sensory are also intact. Normal speech, volume and content. Symmetrical smile. MUSCULOSKELETAL: Normal extremities with adequate strength and full range of motion. LYMPHATICS: No significant lymphadenopathy is noted PSYCHIATRIC: Normal psychiatric evaluation. 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 ] Respiratory 16 16 16 Rate Blood Pressure 93/63 Blood Pressure [Left Arm Sitting] Blood Pressure [Left Arm Standing] Blood Pressure [Right Arm Sitting] Blood Pressure 94/64 [Right Arm Standing] Blood Pressure 98/61 [Right Arm Supine] O2 Sat by Pulse 100 100 100 Oximetry 04/18/23 04/18/23 10:46 10:47 Temperature Pulse Rate Pulse Rate [ 60 53 L 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 EKG shows a sinus rhythm at 63 bpm parables 103 QRS is 86 QT interval 390 QTc is 398. Patient's EKG shows no ST segment ovation or depression. Was pt. sent in by a medical professional or institution (, PA, FLEECER, urgent care, hospital, or residential...) When possible be specific @ -No Did you speak to anyone other than the patient for history (EMS, parent, family, police, friend...)? What history was obtained from this source @ -No Did you review nursing and triage notes (agree or disagree)? Why? @ -I reviewed and agree with nursing and triage notes Were old charts reviewed (outside hosp., previous admission, EMS record, old EKG, old radiological studies, urgent care reports/EKG's, residential records)? Report findings @ -I reviewed prior charts and prior lab work on this patient Differential Diagnosis (chest pain, altered mental status, abdominal pain women, abdominal pain men, vaginal bleeding, weakness, fever, dyspnea, syncope, headache, dizziness, GI bleed, back pain, seizure, CVA, palpatations, mental health, musculoskeletal)? @ -Differential Syncope: Valvular disease, hypertrophic cardiomyopathy, pulmonary embolism, tamponade, tachycardia, bradycardia, NC, hypovolemia, hemorrhage, dissection, anemia, intracranial hemorrhage, seizure, hypoglycemia, carbon monoxide poisoning, this is not meant to be an all-inclusive list. EKG interpreted by me (3pts min.). @ -As above X-rays interpreted by me (1pt min.). @ -Chest x-ray showed no acute abnormality CT interpreted by me (1pt min.). @ -CT of the brain showed no acute abnormality U/S interpreted by me (1pt. min.). @ -None done What testing was considered but not performed or refused? (CT, X-rays, U/S, labs)? Why? @ -None What meds were considered but not given or refused? Why? @ -None Did you discuss the management of the patient with other professionals (professionals i.e. , PA, FLEECER, lab, RT, psych nurse, social security benefits interviewer, vehicle glass technician, teacher, aviation tactical readiness officer, director case)? Give summary @ -No Was smoking cessation discussed for >3mins.? @ -No Was critical care preformed (if so, how long)? @ -No Were there social determinants of health that impacted care today? How? (Homelessness, low income, unemployed, alcoholism, drug addiction, transportation, low edu. Level, literacy, decrease access to med. care, shelter, rehab)? @ -No Was there de-escalation of care discussed even if they declined (Discuss DNR or withdrawal of care, Hospice)? DNR status @ -No What co-morbidities impacted this encounter? (DM, HTN, Smoking, COPD, CAD, Cancer, CVA, ARF, Chemo, Hep., AIDS, mental health diagnosis, sleep apnea, morbid obesity)? @ -None Was patient admitted / discharged? Hospital course, mention meds given and route, prescriptions, significant lab abnormalities, going to OR and other pertinent info. @ -Patient was orthostatic positive when she arrived. Patient was given Lomotil for her diarrhea. Patient was also given 2 L of fluid after which she was no longer dizzy and she is no longer orthostatic. Undiagnosed new problem with uncertain prognosis? @ -No Drug Therapy requiring intensive monitoring for toxicity (Heparin, Nitro, Insulin, Cardizem)? @ -No Were any procedures done? @ -No Diagnosis/symptom? @ -Orthostatic syncope Acute, or Chronic, or Acute on Chronic? @ -Acute Uncomplicated (without systemic symptoms) or Complicated (systemic symptoms)? @ -Complicated Side effects of treatment? @ -No Exacerbation, Progression, or Severe Exacerbation? @ -No Poses a threat to life or bodily function? How? (Chest pain, USA, NC, pneumonia, PE, COPD, DKA, ARF, appy, cholecystitis, CVA, Diverticulitis, Homicidal, Suic idal, threat to staff... and all critical care pts) @ -No Diagnosis/symptom? @ -Diarrhea Acute, or Chronic, or Acute on Chronic? @ -Acute Uncomplicated (without systemic symptoms) or Complicated (systemic symptoms)? @ -Complicated Side effects of treatment? @ -None Exacerbation, Progression, or Severe Exacerbation] @ -No Poses a threat to life or bodily function? @ -No - Lab Data Result diagrams: 04/18/23 09:25 04/18/23 09:25 Lab Results 04/18/23 04/18/23 04/18/23 Range/Units 09:25 09:25 09:25 WBC 3.4 L (3.8-10.6) k/uL RBC 4.22 (3.80-5.40) m/uL Hgb 12.6 (11.4-16.0) gm/dL Hct 38.5 (34.0-46.0) % MCV 91.2 (80.0-100.0) fL MCH 29.8 (25.0-35.0) pg MCHC 32.7 (31.0-37.0) g/dL RDW 13.3 (11.5-15.5) % Plt Count 182 (150-450) k/uL MPV 8.5 Neutrophils % 78 % Lymphocytes % 13 % Monocytes % 8 % Eosinophils % 0 % Basophils % 0 % Neutrophils # 2.6 (1.3-7.7) k/uL Lymphocytes # 0.4 L (1.0-4.8) k/uL Monocytes # 0.3 (0-1.0) k/uL Eosinophils # 0.0 (0-0.7) k/uL Basophils # 0.0 (0-0.2) k/uL PT 10.6 (10.0-12.5) sec INR 1.0 (<1.2) APTT 25.2 (22.0-30.0) sec Sodium 137 (137-145) mmol/L Potassium 4.1 (3.5-5.1) mmol/L Chloride 105 (98-107) mmol/L Carbon Dioxide 22 (22-30) mmol/L Anion Gap 10 mmol/L BUN 10 (7-17) mg/dL Creatinine 0.83 (0.52-1.04) mg/dL Est GFR (CKD-EPI)AfAm >90 (>60 ml/min/1.73 sqM) Est GFR (CKD-EPI)NonAf 80 (>60 ml/min/1.73 sqM) Glucose 95 (74-99) mg/dL Calcium 9.1 (8.4-10.2) mg/dL Magnesium 2.1 (1.6-2.3) mg/dL Total Bilirubin 0.7 (0.2-1.3) mg/dL AST 24 (14-36) U/L ALT 10 (4-34) U/L Alkaline Phosphatase 57 (38-126) U/L Troponin I (0.000-0.034) ng/mL Total Protein 7.0 (6.3-8.2) g/dL Albumin 4.3 (3.5-5.0) g/dL 04/18/23 Range/Units 09:25 WBC (3.8-10.6) k/uL RBC (3.80-5.40) m/uL Hgb (11.4-16.0) gm/dL Hct (34.0-46.0) % MCV (80.0-100.0) fL MCH (25.0-35.0) pg MCHC (31.0-37.0) g/dL RDW (11.5-15.5) % Plt Count (150-450) k/uL MPV Neutrophils % % Lymphocytes % % Monocytes % % Eosinophils % % Basophils % % Neutrophils # (1.3-7.7) k/uL Lymphocytes # (1.0-4.8) k/uL Monocytes # (0-1.0) k/uL Eosinophils # (0-0.7) k/uL Basophils # (0-0.2) k/uL PT (10.0-12.5) sec INR (<1.2) APTT (22.0-30.0) sec Sodium (137-145) mmol/L Potassium (3.5-5.1) mmol/L Chloride (98-107) mmol/L Carbon Dioxide (22-30) mmol/L Anion Gap mmol/L BUN (7-17) mg/dL Creatinine (0.52-1.04) mg/dL Est GFR (CKD-EPI)AfAm (>60 ml/min/1.73 sqM) Est GFR (CKD-EPI)NonAf (>60 ml/min/1.73 sqM) Glucose (74-99) mg/dL Calcium (8.4-10.2) mg/dL Magnesium (1.6-2.3) mg/dL Total Bilirubin (0.2-1.3) mg/dL AST (14-36) U/L ALT (4-34) U/L Alkaline Phosphatase (38-126) U/L Troponin I <0.012 (0.000-0.034) ng/mL Total Protein (6.3-8.2) g/dL Albumin (3.5-5.0) g/dL Disposition Clinical Impression: Orthostatic hypotension, Acute diarrhea Disposition: HOME SELF-CARE Condition: Good Instructions (If sedation given, give patient instructions): Acute Diarrhea (ED) Is patient prescribed a controlled substance at d/c from ED?: No Referrals: Uri Tomas MD [Primary Care Provider] - 1-2 days Time of Disposition: 10:55
[2023-04-18] MEDS: SODIUM CHLORIDE 0.9% 2,000 ML IV ONE (09:32)
--- NOTE | 2023-04-18 10:01 | CT ---
EXAMINATION TYPE: CT brain wo con CT DLP: 1094.9 mGycm, Automated exposure control for dose reduction was used. DATE OF EXAM: 04/18/2023 9:43 AM COMPARISON: 02/22/2011. CLINICAL INDICATION:Female, 57 years old with history of Headache, syncope, Headache, syncope TECHNIQUE: Brain: Axial CT images of the brain were obtained with coronal and sagittal reformats created and rev iewed. Contrast used: None. Oral contrast used: None. FINDINGS: Brain: Extra-axial spaces: No abnormal extra-axial fluid collections. Ventricular system: Within normal limits Cerebral parenchyma: No acute intraparenchymal hemorrhage or mass effect. The issa-white junction is well differentiated. Cerebellum: Unremarkable. Mass effect: No evidence of midline shift. Intracranial vasculature: Atherosclerotic calcifications of the intracranial vessels. Soft tissues: Normal. Calvarium/osseous structures: No depressed skull fracture. Paranasal sinuses and mastoid air cells: Mild scattered paranasal sinus disease. Visualized orbits: Orbital contents are intact. IMPRESSION: No acute intracranial process.
--- NOTE | 2023-04-18 10:02 | XR ---
EXAMINATION TYPE: XR chest 2V DATE OF EXAM: 04/18/2023 9:57 AM CLINICAL INDICATION:Female, 57 years old with history of Chest Pain; [facility] COMPARISON: Chest radiographs from 11/01/2022. TECHNIQUE: XR chest 2V Frontal and lateral views of the chest. FINDINGS: Lungs/Pleura: There is flattening of the diaphragm with increased lucency of the lungs. No evidence o f pneumothorax, pleural effusion or focal consolidation. Pulmonary vascularity: Unremarkable. Heart/mediastinum: Cardiomediastinal silhouette is unremarkable. Musculoskeletal: No acute osseous pathology. Other findings: None IMPRESSION: 1. No acute cardiopulmonary disease process.
[2023-04-18 10:09] LABS: Basophils % (A) 0 %; Eosinophils % (A) 0 %; HCT 38.5 % (34.0-46.0); HGB 12.6 gm/dL (11.4-16.0); Lymphocytes # (A) 0.4 k/uL (1.0-4.8); Lymphocytes % (A) 13 %; MCH 29.8 pg (25.0-35.0); MCHC 32.7 g/dL (31.0-37.0); MCV 91.2 fL (80.0-100.0); Mean Platelet Volume 8.5; Monocytes # (A) 0.3 k/uL (0-1.0); Monocytes % (A) 8 %; Neutrophils # (A) 2.6 k/uL (1.3-7.7); Neutrophils % (A) 78 %; Platelet Count 182 k/uL (150-450); RBC 4.22 m/uL (3.80-5.40); RDW 13.3 % (11.5-15.5); WBC 3.4 k/uL (3.8-10.6)
[2023-04-18 10:20] LABS: ALT 10 U/L (4-34); AST 24 U/L (14-36); African American GFR (CKD) >90 (>60 ml/min/1.73 sqM); Albumin 4.3 g/dL (3.5-5.0); Alkaline Phosphatase 57 U/L (38-126); Anion Gap 10 mmol/L; Blood Urea Nitrogen 10 mg/dL (7-17); Calcium 9.1 mg/dL (8.4-10.2); Carbon Dioxide 22 mmol/L (22-30); Chloride 105 mmol/L (98-107); Glucose 95 mg/dL (74-99); Magnesium 2.1 mg/dL (1.6-2.3); Non-African American GFR(CKD) 80 (>60 ml/min/1.73 sqM); Partial Thromboplastin Time 25.2 sec (22.0-30.0); Potassium 4.1 mmol/L (3.5-5.1); Prothrombin Time 10.6 sec (10.0-12.5); Sodium 137 mmol/L (137-145); Total Bilirubin 0.7 mg/dL (0.2-1.3)
[2023-04-18] MEDS: DIPHENOX-ATROP 2.5-0.025 MG 1 EACH TAB PO STA ×2 (10:28)
[2023-04-18 10:29] VITALS: PULSE 53
[2023-04-18] MEDS: DIPHENOX-ATROP STARTER PACK 8 TAB BTL PO STA (11:01)
[2023-04-18 11:07] VITALS: BP 102/65; RESP 17; TEMP 98.2
== END 2023-04-18 11:09 | disposition home or self-care (01) ==
LOC: EC 08:49
DX: I95.1 Orthostatic hypotension (principal); R19.7 Diarrhea, unspecified
CPT/HCPCS: 36415; 70450; 71046; 80053; 83735; 84484; 85025; 85610; 85730; 93005; 96360; 99285